=== PATIENT | female | born 1980 | race Asian ===

== ENCOUNTER 2018-09-09 12:51 | Emergency (ER) | payer MEDICAID ==
--- NOTE | 2018-09-09 13:29 | ED Physician Chart ---
ED Chief Complaint/HPI - Patient Information Date Seen:: 09/09/18 Time Seen:: 13:24 Chief Complaint:: ALLERGIC RXN History of Present Illness:: 37 YR OLD FEMALE WITH POSSIBLE ALLERGIC RXN TO FRESH PLUM SHE ATE FROM [place] NO TROUBLE BREATHING OR THROAT SWELLING Allergies:: Allergies Allergy/AdvReac Type Severity Reaction Status Date / Time amoxicillin Allergy Verified 09/09/18 13:19 nut - unspecified Allergy Verified 09/09/18 13:20 Penicillins [PCN] Allergy Verified 09/09/18 13:19 soy Allergy Verified 09/09/18 13:20 wheat Allergy Verified 09/09/18 13:20 berries Allergy Uncoded 09/09/18 13:21 zucchini Allergy Uncoded 09/09/18 13:22 Vitals:: PT HAS HX OF MULTIPLE ALLERGIES ED Review of Systems - Review of Systems General/Constitutional: No fever, No chills, No weight loss, No weakness, No diaphoresis, No edema, No loss of appetite Skin: No skin lesions, No rash, No bruising Head: No headache, No light-headedness Eyes: No loss of vision, No pain, No diplopia ENT: No earache, No nasal drainage, No sore throat, No tinnitus Neck: No neck pain, No swelling, No thyromegaly, No stiffness, No mass noted Cardio Vascular: No chest pain, No palpitations, No PND, No orthopnea, No edema Pulmonary: No SOB, No cough, No sputum, No wheezing GI: No nausea, No vomiting, No diarrhea, No pain, No melena, No hematochezia, No constipation, No hematemesis G/U: No dysuria, No frequency, No hematuria Musculoskeletal: No bone or joint pain, No back pain, No muscle pain Endocrine: No polyuria, No polydipsia Psychiatric: No prior psych history, No depression, No anxiety, No suicidal ideation Hematopoietic: No bruising, No lymphadenopathy Allergic/Immuno: No urticaria, No angioedema Neurological: No syncope, No focal symptoms, No weakness, No paresthesia, No headache, No seizure, No dizziness, No confusion, No vertigo ED Past Medical History - Past Medical History Past Medical History: Other (ALLERGIES MULTIPLE) ED Physical Exam - Physical Examination General/Constitutional: Well-developed, well-nourished Head: Atraumatic Eyes: Lids, conjuctiva normal, PERRL, EOMI Skin: Nl inspection, No rash, No skin lesions, No ecchymosis, Well hydrated, No lymphadenopathy ENMT: External ears, nose nl, Nasal exam nl, Lips, teeth, gums nl Neck: Nontender, Full ROM w/o pain, No JVD, No nuchal rigidity, No bruit, No mass, No stridor Respiratory: Nl effort/Exclusion, Clear to Auscultation, No Wheeze/Rhonchi/Rales Cardio Vascular: RRR, No murmur, gallop, rubs, NL S1 S2 GI: No tenderness/rebounding/guarding, No organomegaly, No hernia, Normal BS's, Nondistended, No mass/bruits, No McBurney tenderness : No CVA tenderness Extremities: No tenderness or effusion, Full ROM, normal strength in all extremities, No edema, Normal digits & nails Neuro/Psych: Alert/oriented, DTR's symmetric, Normal sensory exam, Normal motor strength, Judgement/insight normal, Mood normal, Normal gait, No focal deficits Misc: Normal back, No paraspinal tenderness ED Assessment - Assessment General Assessment: ALLERGIC RXN ED Septic Shock - . Is Septic Shock (SBP<90, OR Lactate>4 mmol\L) present?: No ED Reassessment (Disposition) - Reassessment Reassessment:: ALLERGIC RXN - Diagnosis Diagnosis:: ABOVE - Aftercare/Follow up Instructions Medication Prescribed:: BENADRYL PRN - Patient Disposition Discharge/Transfer:: Home Condition at Disposition:: Stable
[2018-09-09 14:08] LABS: ALB/GLOB RATIO 1.9 (1.0-1.8); ALBUMIN 4.3 gm/dL (3.7-5.3); ALKALINE PHOSPHATASE 37 U/L (34-104); ANION GAP 10.9 (7.0-16.0); BILIRUBIN,TOTAL 1.5 mg/dL (0.3-1.0); BUN - UREA NITROGEN 11 mg/dL (7-25); CALCIUM SERUM 9.2 mg/dL (8.6-10.3); CARBON DIOXIDE 26.8 mEq/L (21.0-31.0); CHLORIDE 104 mEq/L (98-107); CREATININE - SERUM 0.5 mg/dL (0.6-1.2); GFR AFRICAN-AMERICAN > 60.0 ml/min (>90); GFR NON AFRICAN-AMERICAN > 60.0 ml/min; GLUCOSE 95 mg/dL (70-105); POTASSIUM SERUM 3.7 mEq/L (3.5-5.1); SGOT 13 U/L (13-39); SGPT/ALT 15 U/L (7-52); SODIUM SERUM 138 mEq/L (136-145); TOTAL PROTEIN,SERUM 6.6 gm/dL (6.0-8.3)
[2018-09-09 14:18] LABS: HEMATOCRIT 31.3 % (41.0-60); HEMOGLOBIN 9.5 gm/dL (12-16); MEAN CORPUSCULAR HEMOGLOBIN 19.7 pg (27.0-31.0); MEAN CORPUSCULAR HGB CONC 30.4 pg (28.0-36.0); PLATELET COUNT 301 Th/cmm (150-400); RED BLOOD COUNT 4.83 Mil/cmm (3.80-5.10); RED CELL DISTRIBUTION WIDTH 19.1 % (11.5-20.0); WHITE BLOOD COUNT 6.9 Th/cmm (4.8-10.8)
[2018-09-09 14:43] LABS: EOSINOPHIL 10 % (0-5); LYMPHOCYTE 19 % (20-50); MEAN CELL VOLUME 64.8 fl (81-100); MONOCYTE 5 % (2-10); NEUTROPHILS 66 % (40-80)
[2018-09-09 15:10] LABS: URINE SOURCE CLEAN C
[2018-09-09 15:28] LABS: URINE BILIRUBIN NEGATIVE (NEGATIVE); URINE BLOOD TRACE (NEGATIVE); URINE GLUCOSE (UA) NEGATIVE (NEGATIVE); URINE KETONE NEGATIVE (NEGATIVE); URINE LEUKOCYTE ESTERASE TRACE (NEGATIVE); URINE MICROSCOPIC INDICATED? YES; URINE NITRATE NEGATIVE (NEGATIVE); URINE PH 7.5 (4.6 - 8.0); URINE PROTEIN TRACE mg/dL (NEGATIVE)
[2018-09-09 15:29] LABS: URINE CLARITY HAZY (CLEAR); URINE COLOR YELLOW
[2018-09-09 15:32] LABS: URINE AMORPHOUS SEDIMENT MODERATE PHOSPHATES (NONE SEEN); URINE BACTERIA FEW /hpf (NONE SEEN); URINE EPITHELIAL CELLS FEW /lpf (FEW); URINE RBC 0-2 /hpf (0-5)
== END 2018-09-09 15:52 | disposition home or self-care (01) ==
LOC: ER 12:51
DX: T78.40XA Allergy, unspecified, initial encounter (principal); Z88.0 Allergy status to penicillin; Z88.1 Allergy status to other antibiotic agents; Z91.018 Allergy to other foods; X58.XXXA Exposure to other specified factors, initial encounter
CPT/HCPCS: 36415-UA; 80053-TC; 81001-TC; 81025-TC; 85007-TC; 85025-TC; Z7502